=== PATIENT | male | born 1995 | race Caucasian/White ===

== ENCOUNTER 2019-05-09 16:45 | Emergency (ER) | payer SELFPAY ==
[~2019-05-09] VITALS: Ht 175.3 cm; Wt 74.4 kg
[2019-05-09 16:56] VITALS: Ht 175.3 cm; Wt 74.4 kg
[2019-05-09 19:02] VITALS: BP 134/73
== END 2019-05-09 19:08 | disposition home or self-care (01) ==
LOC: ED 16:45
DX: S40.011A Contusion of right shoulder, initial encounter (principal); V49.9XXA Car occupant (driver) (passenger) injured in unspecified traffic accident, initial encounter; Y93.89 Activity, other specified; Y92.413 State road as the place of occurrence of the external cause; Y99.8 Other external cause status